=== PATIENT | female | born 1940 | race Two or more races ===

== ENCOUNTER 2016-06-14 15:36 | Inpatient (IN) | payer MEDICARE ==
[~2016-06-14] VITALS: Ht 175.3 cm; Wt 56.0 kg
[2016-06-14 19:47] LABS: Basophils # (auto) 0 uL; Basophils % (auto) 0.4 % (0.0-2.0); DEFINITIVE VIEW TRANSMISSION; Eosinophils # (auto) 0.1 uL; Eosinophils % (auto) 1.1 % (0.0-7.0); Hemoglobin 13.2 g/dL (12.2-16.2); Lymphocytes # (auto) 2.9 uL; Lymphocytes % (auto) 26.8 % (10.0-50.0); Mean Corpuscular Hemoglobin 26.5 pg (28.0-32.0); Mean Corpuscular Hgb Conc. 32.2 g/dL (32.0-36.0); Mean Corpuscular Volume 82.4 fL (80.0-100.0); Mean Platelet Volume 8.4 fL (7.4-10.4); Monocytes # (auto) 0.8 uL; Monocytes % (auto) 7.7 % (0.0-12.0); Platelet Count (auto) 397 10^3/uL (140-450); Red Cell Distribution Width 13.4 % (11.6-16.0); White Blood Cell 10.9 10^3/uL (4.4-10.8)
[2016-06-14 20:00] LABS: Albumin 3.5 g/dL (3.4-5.0); Calcium 9.1 mg/dL (8.5-10.1); Potassium 3.8 mmol/L (3.5-5.1)
[2016-06-14 20:02] LABS: Bilirubin, Total 0.4 mg/dL (0.2-1.0); Total Protein 7.9 g/dL (6.4-8.2)
[2016-06-14] MEDS ORDERED: cloNIDine HCL 0.1 MG TAB PO ONE (22:00)
[2016-06-14] MEDS: cefTRIAXone 1GM/50ML D5W 50 ML IV ONE ×2 (22:31→23:01)
[2016-06-14] MEDS ORDERED: SODIUM CHLORIDE 0.9% 1,000 ML IV SCH (23:23)
[2016-06-14] MEDS ORDERED: DEXTROSE (50%) 50ML SYRG IV PRN (23:30)
[2016-06-14] MEDS ORDERED: LACTULOSE 20Gm/30ML SOLN PO PRN (23:30)
[2016-06-14] MEDS ORDERED: VANCOMYCIN PER PHARMACY 0 MG IV SCH (23:30)
[2016-06-14] MEDS ORDERED: VANCOMYCIN 1GM/250ML D5W 250 ML IV ONE (23:30)
[2016-06-14] MEDS ORDERED: MORPHINE SULF INJ 2 MG/ML SYRINGE 1ML IV PRN (23:30)
[2016-06-14] MEDS ORDERED: NITROGLYCERIN 0.4 MG SL TAB SL PRN (23:30)
[2016-06-14] MEDS ORDERED: cloNIDine HCL 0.1 MG TAB PO PRN (23:30)
[2016-06-15] MEDS: PIPERACILLIN-TAZOB 3.375GM 100 ML IV SCH ×2 (00:39→05:46)
[2016-06-15] MEDS: ACCU-CHEK COMFORT CURVE STRIP VI SCH ×4 (00:40→17:21)
[2016-06-15] MEDS: InsuLIN REG 1unit/0.01ml Soln (100units/ml) SC SCH ×5 (00:42→17:57)
[2016-06-15 01:22] VITALS: BP 111/53
[2016-06-15] MEDS ORDERED: GLYB5TAB8 PO (01:41)
[2016-06-15] MEDS ORDERED: LISI10TA6 PO (01:41)
[2016-06-15] MEDS ORDERED: METO5TAB56 PO (01:41)
[2016-06-15] MEDS ORDERED: ASPI81TA27 PO (01:41)
[2016-06-15 05:23] VITALS: BP 93/54
[2016-06-15 05:54] LABS: Basophils # (auto) 0 uL; Basophils % (auto) 0.6 % (0.0-2.0); DEFINITIVE VIEW TRANSMISSION; Eosinophils # (auto) 0.1 uL; Eosinophils % (auto) 1.4 % (0.0-7.0); Hematocrit 34.6 % (36.0-46.0); Hemoglobin 11.5 g/dL (12.2-16.2); Lymphocytes # (auto) 2.1 uL; Lymphocytes % (auto) 28.7 % (10.0-50.0); Mean Corpuscular Hemoglobin 26.9 pg (28.0-32.0); Mean Corpuscular Hgb Conc. 33.1 g/dL (32.0-36.0); Mean Corpuscular Volume 81.1 fL (80.0-100.0); Mean Platelet Volume 8.4 fL (7.4-10.4); Monocytes # (auto) 0.7 uL; Neutrophils # (auto) 4.5 uL; Neutrophils % (auto) 60.3 % (37.0-80.0); Platelet Count (auto) 363 10^3/uL (140-450); Red Cell Distribution Width 13.1 % (11.6-16.0); White Blood Cell 7.4 10^3/uL (4.4-10.8)
[2016-06-15 06:13] LABS: Albumin 2.8 g/dL (3.4-5.0); BUN/Creatinine Ratio 14.1; Calcium 8.3 mg/dL (8.5-10.1); Potassium 3.9 mmol/L (3.5-5.1)
[2016-06-15 06:15] LABS: Bilirubin, Total 0.4 mg/dL (0.2-1.0); Total Protein 6.6 g/dL (6.4-8.2)
[2016-06-15 09:00] VITALS: BP 100/71
[2016-06-15] MEDS ORDERED: ENOXAPARIN SOD 40 MG/0.4 ML SYRINGE SC SCH (10:00)
[2016-06-15] MEDS ORDERED: LISINOPRIL 20 MG TAB PO SCH (10:00)
[2016-06-15] MEDS ORDERED: ENOXAPARIN SOD 30 MG/0.3 ML SYRINGE SC SCH (10:00)
[2016-06-15] MEDS ORDERED: PANTOPRAZOLE SODIUM 40 MG/10 ML VIAL IV SCH (10:00)
[2016-06-15] MEDS ORDERED: LORazepam 2MG/ML-1ML VIAL IV ONE (11:00)
[2016-06-15] MEDS ORDERED: cefTRIAXone 1GM/50ML D5W 50 ML IV ONE (11:00)
[2016-06-15] MEDS ORDERED: PIPERACILLIN-TAZOB 2.25GM 50 ML IV SCH (12:00)
[2016-06-15 13:00] VITALS: BP 150/61
[2016-06-15] MEDS: CLINDAMYCIN 300MG IV 50 ML IV SCH ×2 (15:08→22:05)
[2016-06-15] MEDS ORDERED: VANCOMYCIN 1GM/250ML D5W 250 ML IV ONE (16:00)
[2016-06-15 22:00] VITALS: BP 127/60
[2016-06-16] MEDS: ACCU-CHEK COMFORT CURVE STRIP VI SCH ×5 (00:07→23:19)
[2016-06-16] MEDS: InsuLIN REG 1unit/0.01ml Soln (100units/ml) SC SCH ×5 (00:07→23:21)
[2016-06-16 04:59] VITALS: BP 135/63
[2016-06-16] MEDS: CLINDAMYCIN 300MG IV 50 ML IV SCH ×3 (06:09→21:05)
[2016-06-16 07:32] LABS: INR 1.1 (0.9-1.15); Partial Thromboplastin Time 28.4 sec (22.64-33.71); Prothrombin Time 11.3 sec (9.37-12.3)
[2016-06-16 07:34] LABS: Albumin 2.9 g/dL (3.4-5.0); BUN/Creatinine Ratio 19.3; Calcium 8.6 mg/dL (8.5-10.1); Potassium 3.8 mmol/L (3.5-5.1)
[2016-06-16 08:15] LABS: Bilirubin, Total 0.3 mg/dL (0.2-1.0); Total Protein 6.8 g/dL (6.4-8.2)
[2016-06-16 09:00] VITALS: BP 155/68
[2016-06-16] MEDS: cefTRIAXone 1GM/50ML D5W 50 ML IV SCH (11:07)
[2016-06-16 13:00] VITALS: BP 140/89
[2016-06-16 13:25] LABS: Urine Bilirubin Negative (Negative); Urine Blood Negative /uL (Negative); Urine Color Yellow (Yellow); Urine Glucose TRACE mg/dL (Normal); Urine Ketone TRACE (Negative); Urine Mucus FEW (None Seen); Urine Nitrite Negative (Negative); Urine RBC 2 /hpf (0 - 4); Urine Squamous Epithelial Cell MOD /hpf (<5); Urine Urobilinogen Normal (Negative)
[2016-06-16 16:58] VITALS: BP 115/50
[2016-06-16 22:00] VITALS: BP 181/78
[2016-06-17] MEDS: CLINDAMYCIN 300MG IV 50 ML IV SCH ×3 (05:12→21:24)
[2016-06-17 05:25] VITALS: BP 152/78
[2016-06-17] MEDS: ACCU-CHEK COMFORT CURVE STRIP VI SCH ×4 (05:41→21:25)
[2016-06-17] MEDS: InsuLIN REG 1unit/0.01ml Soln (100units/ml) SC SCH ×4 (05:43→21:42)
[2016-06-17] MEDS: cefTRIAXone 1GM/50ML D5W 50 ML IV SCH (08:39)
[2016-06-17 09:00] VITALS: BP 148/77
[2016-06-17 13:00] VITALS: BP 146/58
[2016-06-17 17:00] VITALS: BP 149/79
[2016-06-17 21:32] VITALS: BP 162/75
[2016-06-18 04:30] VITALS: BP 196/92
[2016-06-18 05:22] VITALS: BP 132/65
[2016-06-18 05:32] LABS: Basophils # (auto) 0.1 uL; Basophils % (auto) 0.6 % (0.0-2.0); DEFINITIVE VIEW TRANSMISSION; Eosinophils # (auto) 0.2 uL; Eosinophils % (auto) 1.7 % (0.0-7.0); Hematocrit 42.1 % (36.0-46.0); Hemoglobin 13.6 g/dL (12.2-16.2); Lymphocytes # (auto) 3.1 uL; Lymphocytes % (auto) 31.3 % (10.0-50.0); Mean Corpuscular Hemoglobin 26.3 pg (28.0-32.0); Mean Corpuscular Hgb Conc. 32.2 g/dL (32.0-36.0); Mean Corpuscular Volume 81.7 fL (80.0-100.0); Mean Platelet Volume 8.5 fL (7.4-10.4); Monocytes # (auto) 1.1 uL; Monocytes % (auto) 10.7 % (0.0-12.0); Neutrophils # (auto) 5.5 uL; Neutrophils % (auto) 55.7 % (37.0-80.0); Platelet Count (auto) 372 10^3/uL (140-450); Red Cell Distribution Width 13.1 % (11.6-16.0); White Blood Cell 9.9 10^3/uL (4.4-10.8)
[2016-06-18] MEDS: ACCU-CHEK COMFORT CURVE STRIP VI SCH ×3 (05:49→18:00)
[2016-06-18] MEDS: InsuLIN REG 1unit/0.01ml Soln (100units/ml) SC SCH ×3 (05:51→18:30)
[2016-06-18 05:52] LABS: Potassium 3.9 mmol/L (3.5-5.1)
[2016-06-18 05:56] LABS: BUN/Creatinine Ratio 17.4; Calcium 9.3 mg/dL (8.5-10.1)
[2016-06-18] MEDS: cefTRIAXone 1GM/50ML D5W 50 ML IV SCH (09:00)
[2016-06-18 10:00] VITALS: BP 144/100
[2016-06-18] MEDS: ASPirin 81 mg TAB PO SCH (10:00)
[2016-06-18] MEDS ORDERED: IODIXANOL 320MG/ML 100ML BTL IV ONE (10:22)
[2016-06-18] MEDS ORDERED: LIDOCAINE 2%HCL (LOCAL ANESTH.) INJ 20ML MDV ONE (10:22)
[2016-06-18] MEDS ORDERED: MIDAZOLAM HCL 1MG/1ML-2 ML VIAL ONE (10:32)
[2016-06-18] MEDS ORDERED: ANGIOMAX 250 MG VIAL IV ONE (10:33)
[2016-06-18] MEDS ORDERED: fentaNYL CITRATE 100 MCG/2 ML VL ONE (10:33)
[2016-06-18] MEDS ORDERED: SODIUM CHL 0.9% 50 ML ONE (10:33)
[2016-06-18] MEDS ORDERED: hydrALAZINE HCL 20 MG/ML VL ONE (11:15)
[2016-06-18] MEDS ORDERED: LABETALOL HCL 5 MG/ML 4ML SYRINGE IV ONE (11:21)
[2016-06-18] MEDS ORDERED: EPTIFIBATIDE INJ (2MG/ML) 10ML VIAL IV ONE (11:34)
[2016-06-18] MEDS ORDERED: VERAPAMIL 2.5MG/ML INJ 2ML VIAL IV ONE (11:34)
[2016-06-18] MEDS ORDERED: NITROGLYCERIN 5MG/ML 10ML VIAL IV ONE (11:34)
[2016-06-18] MEDS ORDERED: cloNIDine HCL 0.1 MG TAB ONE (11:41)
[2016-06-18] MEDS ORDERED: cloNIDine HCL 0.1 MG TAB PO ONE (12:00)
[2016-06-18] MEDS ORDERED: ONDANSETRON HCL 4 MG/2 ML VIAL ONE (12:29)
[2016-06-18] MEDS ORDERED: ONDANSETRON HCL 4 MG/2 ML VIAL IV ONE (13:00)
[2016-06-18] MEDS ORDERED: SODIUM CHL 0.9% 500 ML IV ONE (13:30)
[2016-06-18] MEDS ORDERED: LISINOPRIL 10 MG TAB PO ONE (15:15)
[2016-06-18 16:49] VITALS: BP 113/51
[2016-06-18 17:00] VITALS: BP 137/64
[2016-06-18 22:00] VITALS: BP 110/50
[2016-06-19] MEDS: ACCU-CHEK COMFORT CURVE STRIP VI SCH ×4 (00:25→18:02)
[2016-06-19] MEDS: InsuLIN REG 1unit/0.01ml Soln (100units/ml) SC SCH ×4 (01:28→18:00)
[2016-06-19] MEDS: HYDROcodone-ACET 5/325MG TAB PO PRN ×2 (04:09→20:10)
[2016-06-19 05:09] VITALS: BP 103/51
[2016-06-19] MEDS: CLINDAMYCIN 300MG IV 50 ML IV SCH ×3 (05:37→21:47)
[2016-06-19 06:29] LABS: BUN/Creatinine Ratio 18.4; Calcium 8.2 mg/dL (8.5-10.1); Potassium 3.7 mmol/L (3.5-5.1)
[2016-06-19 08:30] VITALS: BP 91/41
[2016-06-19] MEDS: LISINOPRIL 10 MG TAB PO SCH ×3 (10:00→21:47)
[2016-06-19] MEDS: cefTRIAXone 1GM/50ML D5W 50 ML IV SCH (11:23)
[2016-06-19] MEDS: ASPirin 81 mg TAB PO SCH (11:23)
[2016-06-19 12:00] VITALS: BP 175/73
[2016-06-19 17:00] VITALS: BP 195/82
[2016-06-19] MEDS ORDERED: cloNIDine HCL 0.1 MG TAB PO PRN (17:15)
[2016-06-19 22:00] VITALS: BP 179/76
[2016-06-20] MEDS: ACCU-CHEK COMFORT CURVE STRIP VI SCH ×4 (00:15→17:36)
[2016-06-20] MEDS: InsuLIN REG 1unit/0.01ml Soln (100units/ml) SC SCH ×4 (00:17→17:36)
[2016-06-20 05:30] VITALS: BP 94/69
[2016-06-20] MEDS: CLINDAMYCIN 300MG IV 50 ML IV SCH (05:36)
[2016-06-20] MEDS ORDERED: ceFAZolin 1GM/50ML D5W 50 ML IV ONE (08:53)
[2016-06-20 09:02] VITALS: BP 177/73
[2016-06-20] MEDS ORDERED: ONDANSETRON HCL 4 MG/2 ML VIAL ONE (09:15)
[2016-06-20] MEDS ORDERED: fentaNYL CITRATE 100 MCG/2 ML VL ONE (09:15)
[2016-06-20] MEDS ORDERED: MIDAZOLAM HCL 1MG/1ML-2 ML VIAL ONE (09:15)
[2016-06-20] MEDS ORDERED: SODIUM CHLORIDE LOCK 20 ML ONE (09:15)
[2016-06-20] MEDS ORDERED: PROPOFOL 10 MG/ML 20 ML IV ONE (09:15)
[2016-06-20] MEDS ORDERED: BUPIVACAINE 0.75% INJ 10ML MPV SDV IJ ONE (10:25)
[2016-06-20] MEDS ORDERED: BUPIVACAINE 0.75% INJ 30ML MPF VIAL IJ ONE (10:30)
[2016-06-20] MEDS ORDERED: SILVER SULFADIAZINE 1 % TOPICAL CREAM 50GM TOP ONE ×2 (10:33→10:44)
[2016-06-20] MEDS ORDERED: HYDROmorphone HCL 2 MG/ML VL IV PRN (11:00)
[2016-06-20] MEDS ORDERED: PROMETHAZINE HCL 25 MG/ML 1ML IM ONE (11:00)
[2016-06-20] MEDS ORDERED: ACCU-CHEK COMFORT CURVE STRIP VI ONE (11:00)
[2016-06-20] MEDS: ASPirin 81 mg TAB PO SCH (12:30)
[2016-06-20] MEDS: LISINOPRIL 10 MG TAB PO SCH ×2 (12:31→22:06)
[2016-06-20] MEDS: cefTRIAXone 1GM/50ML D5W 50 ML IV SCH (12:31)
[2016-06-20 12:41] VITALS: BP 159/86
[2016-06-20] MEDS ORDERED: LEVOFLOXACIN 500 MG TAB PO ONE (14:00)
[2016-06-20] MEDS: CLINDAMYCIN HCL 150 MG CAP PO SCH ×2 (14:14→22:05)
[2016-06-20 16:44] VITALS: BP 150/91
[2016-06-20 22:21] VITALS: BP 203/104
[2016-06-21] MEDS: ACCU-CHEK COMFORT CURVE STRIP VI SCH ×3 (00:21→12:00)
[2016-06-21 05:13] VITALS: BP 135/65
[2016-06-21] MEDS: CLINDAMYCIN HCL 150 MG CAP PO SCH (06:09)
[2016-06-21] MEDS: InsuLIN REG 1unit/0.01ml Soln (100units/ml) SC SCH ×3 (06:22→12:00)
[2016-06-21 06:24] LABS: Basophils # (auto) 0 uL; Basophils % (auto) 0.7 % (0.0-2.0); Eosinophils # (auto) 0.1 uL; Eosinophils % (auto) 1.8 % (0.0-7.0); Hemoglobin 10.7 g/dL (12.2-16.2); Lymphocytes # (auto) 1.2 uL; Mean Corpuscular Hemoglobin 27.6 pg (28.0-32.0); Mean Corpuscular Hgb Conc. 33.4 g/dL (32.0-36.0); Mean Corpuscular Volume 82.6 fL (80.0-100.0); Mean Platelet Volume 8.6 fL (7.4-10.4); Monocytes # (auto) 0.8 uL; Monocytes % (auto) 11.1 % (0.0-12.0); Neutrophils # (auto) 4.8 uL; Neutrophils % (auto) 69.4 % (37.0-80.0); Platelet Count (auto) 253 10^3/uL (140-450); Red Cell Distribution Width 12.5 % (11.6-16.0); White Blood Cell 6.9 10^3/uL (4.4-10.8)
[2016-06-21 06:40] LABS: BUN/Creatinine Ratio 10.8; Calcium 8.4 mg/dL (8.5-10.1); Potassium 4.3 mmol/L (3.5-5.1)
[2016-06-21 09:00] VITALS: BP 129/54
[2016-06-21] MEDS ORDERED: LEVOFLOXACIN 500 MG TAB PO SCH (10:00)
[2016-06-21] MEDS ORDERED: LEVOFLOXACIN 250 MG TAB PO SCH (10:00)
[2016-06-21] MEDS: LISINOPRIL 10 MG TAB PO SCH (10:09)
[2016-06-21] MEDS: ASPirin 81 mg TAB PO SCH (10:09)
[2016-06-21 11:44] VITALS: BP 129/54
== END 2016-06-21 13:46 | disposition home or self-care (01) | DRG 264 ==
LOC: ER 15:40 → TELE-EAST 15:41 → EAST 06-15 14:34
PROVIDERS: ADMIT Family Medicine; ATTEND Internal Medicine
PROC: B41G1ZZ Fluoroscopy of Left Lower Extremity Arteries using Low Osmolar Contrast (ICD-10-PCS; principal; 2016-06-18)
PROC: B41F1ZZ Fluoroscopy of Right Lower Extremity Arteries using Low Osmolar Contrast (ICD-10-PCS; 2016-06-18)
PROC: 0HDRXZZ Extraction of Toe Nail, External Approach (ICD-10-PCS; 2016-06-18)
PROC: 0JBR0ZZ Excision of Left Foot Subcutaneous Tissue and Fascia, Open Approach (ICD-10-PCS; 2016-06-20)
PROC: 0HRNXK3 Replacement of Left Foot Skin with Nonautologous Tissue Substitute, Full Thickness, External Approach (ICD-10-PCS; 2016-06-20)
DX: E10.51 Type 1 diabetes mellitus with diabetic peripheral angiopathy without gangrene (principal); N17.0 Acute kidney failure with tubular necrosis; L03.116 Cellulitis of left lower limb; E44.0 Moderate protein-calorie malnutrition; Z68.1 Body mass index [BMI] 19.9 or less, adult; E10.621 Type 1 diabetes mellitus with foot ulcer; L03.032 Cellulitis of left toe; E10.65 Type 1 diabetes mellitus with hyperglycemia; L97.521 Non-pressure chronic ulcer of other part of left foot limited to breakdown of skin; I25.10 Atherosclerotic heart disease of native coronary artery without angina pectoris; I10 Essential (primary) hypertension; L97.529 Non-pressure chronic ulcer of other part of left foot with unspecified severity; Z82.3 Family history of stroke; Z82.49 Family history of ischemic heart disease and other diseases of the circulatory system; Z95.1 Presence of aortocoronary bypass graft; Z83.3 Family history of diabetes mellitus; Z79.4 Long term (current) use of insulin; Z79.82 Long term (current) use of aspirin; Z98.890 Other specified postprocedural states; Z79.899 Other long term (current) drug therapy
CPT/HCPCS: 36415; 71020; 73620; 78315; 80048; 80053; 80202; 81001; 82962; 83036; 85025; 85049; 85610; 85730; 87040; 87070; 87075; 87077; 87081; 87186; 93923; 96365; 96375; 99152; J0690; J0696; J1815; J2250; J2405; J2543; J2704; J3490; Q9967

== ENCOUNTER 2017-01-13 14:09 | Inpatient (IN) | payer MEDICARE ==
[~2017-01-13] VITALS: Ht 162.6 cm; Wt 44.9 kg
[~2017-01-13 14:09] MED LIST: ACET-1158 PO; ASPI81TA27 PO; ATOR20TA50 PO; BIS10RS PR; CLON0.2T PO; CLOP75TA28 PO; FLUC100T PO; FLUC100T34 PO; GLYB5TAB8 PO; INSUINJ IJ; LISI10TA6 PO; MAGN400S25 PO; MULT1TAB61 PO; ONDA4TAB5 PO; POTA10TA51 PO; SIMV10TA84 PO; SOTA80TA PO; TRAM50TA2 PO; VAN1PBAE IV; [UNRECOGNIZED DRUG - CODE] IV
[2017-01-13] MEDS ORDERED: SODIUM CHLORIDE 0.9% 1,000 ML IVB ONE (14:33)
[2017-01-13 15:11] LABS: Albumin 3.7 g/dL (3.4-5.0); Calcium 9.4 mg/dL (8.5-10.1); Magnesium 2.1 mg/dL (1.6-2.6); Potassium 4.7 mmol/L (3.5-5.1)
[2017-01-13 15:17] LABS: CONDITION Y; Hematocrit 40.8 % (36.0-46.0); Hemoglobin 13.6 g/dL (12.2-16.2); Mean Corpuscular Hemoglobin 27.2 pg (28.0-32.0); Mean Corpuscular Hgb Conc. 33.4 g/dL (32.0-36.0); Mean Corpuscular Volume 81.2 fL (80.0-100.0); Mean Platelet Volume 9.4 fL (7.4-10.4); Platelet Count (auto) 460 10^3/uL (140-450); Red Cell Distribution Width 17.5 % (11.6-16.0); SUSPECT SEE PRINTOUT; White Blood Cell 26.6 10^3/uL (4.4-10.8)
[2017-01-13 15:20] LABS: Bilirubin, Total 0.5 mg/dL (0.2-1.0); Total Protein 8.6 g/dL (6.4-8.2)
[2017-01-13 15:22] LABS: Metamyelocytes % 0; Myelocytes % 0; Promyelocytes % 0; Reactive Lymphocytes 0
[2017-01-13 15:53] LABS: Platelet Estimate Increased
[2017-01-13 15:54] LABS: Hypersegmented Neutrophils Present; INR 1.03 (0.9-1.15); Partial Thromboplastin Time 30.1 sec (22.64-33.71); Prothrombin Time 11.2 sec (9.37-12.3)
[2017-01-13 15:55] LABS: Toxic Granulation Slight
[2017-01-13 15:59] LABS: Lactic Acid w/Reflex 2.1 mmol/L (0.4-2.0)
[2017-01-13] MEDS ORDERED: LABETALOL HCL 5 MG/ML ML 20ML VIAL IV ONE (16:00)
[2017-01-13 16:18] LABS: REFLEX LACTIC ACID YES OR NO YES
[2017-01-13] MEDS ORDERED: VANCOMYCIN PER PHARMACY 0 MG IV SCH ×2 (18:00)
[2017-01-13] MEDS ORDERED: MORPHINE SULF INJ 2 MG/ML SYRINGE 1ML IV ONE (18:00)
[2017-01-13] MEDS ORDERED: ONDANSETRON HCL 4 MG/2 ML VIAL IV ONE (18:00)
[2017-01-13] MEDS ORDERED: hydrALAZINE HCL 20 MG/ML VL IV ONE (18:00)
[2017-01-13] MEDS ORDERED: cefTRIAXone 1GM/50ML D5W 50 ML IV ONE ×2 (18:00)
[2017-01-13] MEDS ORDERED: VANCOMYCIN 1GM/250ML D5W 250 ML IV ONE (19:00)
[2017-01-13 19:24] LABS: Urine Bilirubin Negative (Negative); Urine Blood Negative /uL (Negative); Urine Color Yellow (Yellow); Urine Glucose 4+ mg/dL (Normal); Urine Hyaline Cast FEW /lpf (0 - 2); Urine Ketone 1+ (Negative); Urine Nitrite Negative (Negative); Urine RBC 2 /hpf (0 - 4); Urine Urobilinogen Normal (Negative); Urine WBC Clumps PRESENT /hpf (None Seen)
[2017-01-13] MEDS ORDERED: LORazepam 2MG/ML-1ML VIAL IV ONE (20:00)
[2017-01-13] MEDS ORDERED: diphenhdrAMINE HCL 50 MG/1 ML VL IV ONE (20:00)
[2017-01-14] VITALS (7 sets, daily range): BP systolic 116–205; BP diastolic 54–99
[2017-01-14] MEDS ORDERED: LACTULOSE 20Gm/30ML SOLN PO PRN (00:45)
[2017-01-14] MEDS ORDERED: LORazepam 2MG/ML-1ML VIAL IV PRN (00:45)
[2017-01-14] MEDS ORDERED: ACETAMINOPHEN 500 MG TAB PO PRN (00:45)
[2017-01-14] MEDS ORDERED: ONDANSETRON HCL 4 MG/2 ML VIAL IV PRN (00:45)
[2017-01-14] MEDS ORDERED: NITROGLYCERIN 0.4 MG SL TAB SL PRN (00:45)
[2017-01-14] MEDS ORDERED: cefTRIAXone 1GM/50ML D5W 50 ML IV ONE (00:45)
[2017-01-14] MEDS ORDERED: DEXTROSE (50%) 50ML SYRG IV PRN (00:45)
[2017-01-14] MEDS ORDERED: MORPHINE SULF INJ 2 MG/ML SYRINGE 1ML IV PRN ×2 (00:45)
[2017-01-14] MEDS ORDERED: TEMAZEPAM 15 MG CAP PO PRN (00:45)
[2017-01-14] MEDS ORDERED: cloNIDine HCL 0.1 MG TAB PO PRN (03:45)
[2017-01-14] MEDS ORDERED: LABETALOL HCL 5 MG/ML ML 20ML VIAL IV ONE (03:45)
[2017-01-14] MEDS: PIPERACILLIN-TAZOB 3.375GM 100 ML IV SCH ×3 (05:56→17:52)
[2017-01-14] MEDS: ACCU-CHEK COMFORT CURVE STRIP VI SCH ×4 (06:31→21:58)
[2017-01-14] MEDS: InsuLIN REG 1unit/0.01ml Soln (100units/ml) SC SCH ×4 (06:32→21:58)
[2017-01-14 06:46] LABS: Basophils # (auto) 0 uL; Basophils % (auto) 0.3 % (0.0-2.0); CONDITION Y; DEFINITIVE SEE PRINTOUT; Eosinophils # (auto) 0.1 uL; Eosinophils % (auto) 0.5 % (0.0-7.0); Hematocrit 35.1 % (36.0-46.0); Hemoglobin 11.5 g/dL (12.2-16.2); Lymphocytes # (auto) 1.6 uL; Lymphocytes % (auto) 9.1 % (10.0-50.0); Mean Corpuscular Hemoglobin 26.8 pg (28.0-32.0); Mean Corpuscular Hgb Conc. 32.8 g/dL (32.0-36.0); Mean Corpuscular Volume 81.5 fL (80.0-100.0); Monocytes # (auto) 1.4 uL; Monocytes % (auto) 7.8 % (0.0-12.0); Neutrophils # (auto) 14.5 uL; Neutrophils % (auto) 82.3 % (37.0-80.0); Platelet Count (auto) 381 10^3/uL (140-450); Potassium 4.1 mmol/L (3.5-5.1); Red Cell Distribution Width 17.3 % (11.6-16.0); White Blood Cell 17.6 10^3/uL (4.4-10.8)
[2017-01-14 06:56] LABS: Albumin 2.8 g/dL (3.4-5.0); BUN/Creatinine Ratio 27.1; Calcium 9.1 mg/dL (8.5-10.1)
[2017-01-14 06:58] LABS: Bilirubin, Total 0.2 mg/dL (0.2-1.0)
[2017-01-14] MEDS: CLOPIDOGREL BISULFATE 75 MG TAB PO SCH (11:22)
[2017-01-14] MEDS: LISINOPRIL 10 MG TAB PO SCH (11:23)
[2017-01-14] MEDS: LINEZOLID 600MG/300ML 300 ML IV SCH ×2 (11:29→22:28)
[2017-01-14] MEDS ORDERED: InsuLIN REG 1unit/0.01ml Soln (100units/ml) ONE ×2 (11:47→11:57)
[2017-01-14] MEDS ORDERED: IBUP600T27 PO (15:06)
[2017-01-14] MEDS ORDERED: TEMA15CA91 PO (15:06)
[2017-01-14] MEDS ORDERED: ALPR0.254 PO (15:06)
[2017-01-14] MEDS ORDERED: LISI-646 PO (15:06)
[2017-01-14] MEDS ORDERED: PERCOT PO (15:06)
[2017-01-14] MEDS ORDERED: FAMO-12 PO (15:06)
[2017-01-14] MEDS ORDERED: CITA-77 PO (15:06)
[2017-01-14] MEDS ORDERED: POM (15:14)
[2017-01-14] MEDS: ATORVASTATIN 20 MG TAB PO SCH (21:52)
[2017-01-14] MEDS ORDERED: cefTRIAXone 1GM/50ML D5W 50 ML IV SCH (22:00)
[2017-01-15] MEDS: PIPERACILLIN-TAZOB 3.375GM 100 ML IV SCH ×4 (00:32→18:22)
[2017-01-15 05:26] VITALS: BP 127/62
[2017-01-15] MEDS: ACCU-CHEK COMFORT CURVE STRIP VI SCH ×4 (05:54→22:25)
[2017-01-15] MEDS: InsuLIN REG 1unit/0.01ml Soln (100units/ml) SC SCH ×4 (05:55→22:26)
[2017-01-15 06:49] LABS: Basophils # (auto) 0 uL; Basophils % (auto) 0.5 % (0.0-2.0); CONDITION Y; Eosinophils # (auto) 0.4 uL; Eosinophils % (auto) 3.8 % (0.0-7.0); Hematocrit 32.9 % (36.0-46.0); Hemoglobin 10.9 g/dL (12.2-16.2); Lymphocytes # (auto) 1.6 uL; Lymphocytes % (auto) 16.6 % (10.0-50.0); Mean Corpuscular Hemoglobin 27.1 pg (28.0-32.0); Mean Corpuscular Hgb Conc. 33.2 g/dL (32.0-36.0); Mean Corpuscular Volume 81.4 fL (80.0-100.0); Mean Platelet Volume 8.8 fL (7.4-10.4); Monocytes # (auto) 0.8 uL; Monocytes % (auto) 8.6 % (0.0-12.0); Neutrophils # (auto) 6.8 uL; Neutrophils % (auto) 70.5 % (37.0-80.0); Platelet Count (auto) 343 10^3/uL (140-450); Red Cell Distribution Width 17.5 % (11.6-16.0); White Blood Cell 9.7 10^3/uL (4.4-10.8)
[2017-01-15 07:04] LABS: BUN/Creatinine Ratio 18.8; Calcium 8.7 mg/dL (8.5-10.1); Potassium 3.5 mmol/L (3.5-5.1)
[2017-01-15 07:50] VITALS: BP 122/63
[2017-01-15 08:17] VITALS: BP 122/63
[2017-01-15] MEDS: CLOPIDOGREL BISULFATE 75 MG TAB PO SCH (10:07)
[2017-01-15] MEDS: LISINOPRIL 10 MG TAB PO SCH (10:08)
[2017-01-15] MEDS ORDERED: CITALOPRAM HYDROBR 20 MG TAB PO ONE (10:30)
[2017-01-15] MEDS ORDERED: ASPirin 81 mg TAB PO ONE (10:30)
[2017-01-15] MEDS: LINEZOLID 600MG/300ML 300 ML IV SCH ×2 (11:10→22:26)
[2017-01-15 11:38] VITALS: BP 156/71
[2017-01-15 16:59] VITALS: BP 142/77
[2017-01-15 21:30] VITALS: BP 146/77
[2017-01-15] MEDS: ATORVASTATIN 20 MG TAB PO SCH (22:26)
[2017-01-16] MEDS: PIPERACILLIN-TAZOB 3.375GM 100 ML IV SCH ×4 (01:02→18:26)
[2017-01-16 04:45] VITALS: BP 215/89
[2017-01-16] MEDS: ACCU-CHEK COMFORT CURVE STRIP VI SCH ×4 (05:38→21:24)
[2017-01-16] MEDS: InsuLIN REG 1unit/0.01ml Soln (100units/ml) SC SCH ×4 (05:44→22:14)
[2017-01-16 05:45] VITALS: BP 204/89
[2017-01-16] MEDS ORDERED: METOPROLOL TARTRATE 1MG/1ML-5ML VIAL IV ONE (06:30)
[2017-01-16 08:00] VITALS: BP 110/52
[2017-01-16] MEDS: ASPirin 81 mg TAB PO SCH (09:13)
[2017-01-16] MEDS: LISINOPRIL 10 MG TAB PO SCH (09:13)
[2017-01-16] MEDS: CITALOPRAM HYDROBR 20 MG TAB PO SCH (09:13)
[2017-01-16] MEDS ORDERED: BOOST PLUS 8 ounce PO SCH (10:00)
[2017-01-16] MEDS: Boost Glucose Control 8 Ounces PO SCH ×2 (10:00→21:24)
[2017-01-16] MEDS: LINEZOLID 600MG/300ML 300 ML IV SCH ×2 (10:57→22:59)
[2017-01-16] MEDS: MULTIPLE VITAMINS W/ MINERALS TAB PO SCH ×2 (12:03→21:24)
[2017-01-16] MEDS: ASCORBIC ACID 500 MG TAB PO SCH ×2 (12:03→21:24)
[2017-01-16 12:34] VITALS: BP 119/58
[2017-01-16 16:51] VITALS: BP 132/81
[2017-01-16] MEDS: ATORVASTATIN 20 MG TAB PO SCH (21:24)
[2017-01-16 21:32] VITALS: BP 125/61
[2017-01-17] MEDS: PIPERACILLIN-TAZOB 3.375GM 100 ML IV SCH ×3 (00:17→11:48)
[2017-01-17 04:56] VITALS: BP 155/79
[2017-01-17 06:01] LABS: Basophils # (auto) 0 uL; Basophils % (auto) 0.6 % (0.0-2.0); CONDITION Y; DEFINITIVE SEE PRINTOUT; Eosinophils # (auto) 0.4 uL; Eosinophils % (auto) 5.7 % (0.0-7.0); Hematocrit 33.7 % (36.0-46.0); Lymphocytes # (auto) 2.1 uL; Lymphocytes % (auto) 28.1 % (10.0-50.0); Mean Corpuscular Hemoglobin 26.6 pg (28.0-32.0); Mean Corpuscular Hgb Conc. 32.6 g/dL (32.0-36.0); Mean Corpuscular Volume 81.7 fL (80.0-100.0); Mean Platelet Volume 8.9 fL (7.4-10.4); Monocytes # (auto) 0.7 uL; Monocytes % (auto) 9.2 % (0.0-12.0); Neutrophils # (auto) 4.1 uL; Neutrophils % (auto) 56.4 % (37.0-80.0); Platelet Count (auto) 348 10^3/uL (140-450); Red Cell Distribution Width 17.2 % (11.6-16.0); White Blood Cell 7.3 10^3/uL (4.4-10.8)
[2017-01-17] MEDS: ACCU-CHEK COMFORT CURVE STRIP VI SCH ×2 (06:14→11:48)
[2017-01-17] MEDS: InsuLIN REG 1unit/0.01ml Soln (100units/ml) SC SCH ×2 (06:15→12:48)
[2017-01-17 06:37] LABS: Potassium 3.6 mmol/L (3.5-5.1)
[2017-01-17 06:44] LABS: BUN/Creatinine Ratio 14.3; Calcium 8.8 mg/dL (8.5-10.1)
[2017-01-17] MEDS ORDERED: DOCUSATE SOD 100 MG CAP PO ONE (08:30)
[2017-01-17 09:00] VITALS: BP 169/78
[2017-01-17] MEDS: MULTIPLE VITAMINS W/ MINERALS TAB PO SCH (09:39)
[2017-01-17] MEDS: CITALOPRAM HYDROBR 20 MG TAB PO SCH (09:39)
[2017-01-17] MEDS: ASPirin 81 mg TAB PO SCH (09:39)
[2017-01-17] MEDS: ASCORBIC ACID 500 MG TAB PO SCH (09:39)
[2017-01-17] MEDS: LISINOPRIL 10 MG TAB PO SCH (09:50)
[2017-01-17] MEDS: Boost Glucose Control 8 Ounces PO SCH (10:00)
[2017-01-17] MEDS ORDERED: DOCUSATE SOD 100 MG CAP PO SCH (10:00)
[2017-01-17] MEDS: LINEZOLID 600MG/300ML 300 ML IV SCH (10:45)
[2017-01-17 12:06] VITALS: BP 169/78
[2017-01-17 12:25] VITALS: BP 160/90
== END 2017-01-17 16:01 | disposition hospice, home (50) | DRG 871 ==
LOC: EDBD 14:09 → ER 14:11 → TELE 14:12 → TELE-CENTR 01-14 03:09
PROVIDERS: ADMIT Nurse Practitioner Family; ATTEND Internal Medicine
DX: A41.9 Sepsis, unspecified organism (principal); G92 Toxic encephalopathy; E44.0 Moderate protein-calorie malnutrition; E11.52 Type 2 diabetes mellitus with diabetic peripheral angiopathy with gangrene; N39.0 Urinary tract infection, site not specified; M86.8X7 Other osteomyelitis, ankle and foot; Z68.1 Body mass index [BMI] 19.9 or less, adult; Z66 Do not resuscitate; F03.90 Unspecified dementia, unspecified severity, without behavioral disturbance, psychotic disturbance, mood disturbance, and anxiety; E11.65 Type 2 diabetes mellitus with hyperglycemia; E11.69 Type 2 diabetes mellitus with other specified complication; I10 Essential (primary) hypertension; E78.5 Hyperlipidemia, unspecified; I25.10 Atherosclerotic heart disease of native coronary artery without angina pectoris; I45.10 Unspecified right bundle-branch block; K21.9 Gastro-esophageal reflux disease without esophagitis; S91.301A Unspecified open wound, right foot, initial encounter; Z79.4 Long term (current) use of insulin; Z79.82 Long term (current) use of aspirin; Z79.899 Other long term (current) drug therapy; Z89.512 Acquired absence of left leg below knee; Z95.1 Presence of aortocoronary bypass graft; Z82.3 Family history of stroke; Z82.49 Family history of ischemic heart disease and other diseases of the circulatory system; Z83.3 Family history of diabetes mellitus; Z89.511 Acquired absence of right leg below knee
CPT/HCPCS: 36415; 51702; 70450; 71010; 78315; 80048; 80053; 80202; 80307; 81001; 82962; 83036; 83605; 83735; 84484; 85007; 85025; 85027; 85610; 85652; 85730; 87040; 87081; 87086; 93005; 94761; 96365; 96366; 96367; 96375; J0696; J1815; J2405; J2543

== ENCOUNTER 2017-11-03 15:49 | Emergency (ER) | payer MEDICARE ==
[~2017-11-03] VITALS: Ht 149.9 cm; Wt 49.9 kg
[~2017-11-03 15:49] MED LIST changes: -ACET-1158 PO; -ATOR20TA50 PO; -BIS10RS PR; -CLON0.2T PO; -CLOP75TA28 PO; -FLUC100T PO; -FLUC100T34 PO; -GLYB5TAB8 PO; -INSUINJ IJ; -MAGN400S25 PO; -ONDA4TAB5 PO; -POTA10TA51 PO; -SIMV10TA84 PO; -SOTA80TA PO; -TRAM50TA2 PO; -VAN1PBAE IV; -[UNRECOGNIZED DRUG - CODE] IV
[2017-11-03] MEDS ORDERED: SODIUM CHLORIDE 0.9% 1,000 ML IV ONE (18:10)
[2017-11-03] MEDS ORDERED: CLINDAMYCIN 600MG IV 50 ML IV ONE (18:15)
[2017-11-03 18:32] LABS: Basophils # (auto) 0.1 uL; Basophils % (auto) 0.8 % (0.0-2.0); Eosinophils # (auto) 0.3 uL; Eosinophils % (auto) 2.9 % (0.0-7.0); Hematocrit 39.3 % (36.0-46.0); Hemoglobin 13.2 g/dL (12.2-16.2); Lymphocytes # (auto) 2.6 uL; Lymphocytes % (auto) 28.2 % (10.0-50.0); Mean Corpuscular Hemoglobin 27.7 pg (28.0-32.0); Mean Corpuscular Hgb Conc. 33.6 g/dL (32.0-36.0); Mean Corpuscular Volume 82.3 fL (80.0-100.0); Monocytes # (auto) 0.7 uL; Monocytes % (auto) 7.8 % (0.0-12.0); Neutrophils # (auto) 5.6 uL; Neutrophils % (auto) 60.3 % (37.0-80.0); Nucleated Red Blood Cells % 0.1 %; Platelet Count (auto) 314 10^3/uL (140-450); Red Blood Cells 4.77 10^6/uL (4.0-5.20); Red Cell Distribution Width 13.9 % (11.8-14.3); White Blood Cell 9.3 10^3/uL (4.4-10.8)
[2017-11-03 18:44] LABS: Albumin 3.7 g/dL (3.4-5.0); Calcium 9.1 mg/dL (8.5-10.1); Potassium 4.7 mmol/L (3.5-5.1)
[2017-11-03 18:46] LABS: BUN/Creatinine Ratio 36.6; INR 0.92 (0.9-1.15); Prothrombin Time 9.9 sec (9.27-12.13)
[2017-11-03 19:08] LABS: Bilirubin, Total 0.2 mg/dL (0.2-1.0); Total Protein 8.1 g/dL (6.4-8.2)
[2017-11-03 20:34] VITALS: BP 178/89
== END 2017-11-03 21:22 | disposition home or self-care (01) ==
LOC: ER 15:49
DX: L03.115 Cellulitis of right lower limb (principal); E11.9 Type 2 diabetes mellitus without complications; E78.5 Hyperlipidemia, unspecified; I10 Essential (primary) hypertension; I25.2 Old myocardial infarction; Z88.6 Allergy status to analgesic agent; Z88.1 Allergy status to other antibiotic agents
CPT/HCPCS: 36415; 71045; 73620; 80053; 85025; 85610; 85730; 94761; 96365; 96366; J3490

== ENCOUNTER 2017-11-05 10:59 | Inpatient (IN) | payer MEDICARE ==
[~2017-11-05] VITALS: Ht 165.1 cm; Wt 51.3 kg
[2017-11-05 11:52] VITALS: BP 163/88
[2017-11-05] MEDS ORDERED: LISINOPRIL 10 MG TAB PO ONE (12:45)
[2017-11-05] MEDS ORDERED: ONDANSETRON HCL 4 MG/2 ML VIAL IV PRN (12:45)
[2017-11-05] MEDS ORDERED: HYDROmorphone HCL 2 MG/ML VL IV PRN (12:45)
[2017-11-05] MEDS ORDERED: DEXTROSE (50%) 50ML SYRG IV PRN (12:45)
[2017-11-05] MEDS ORDERED: LORazepam 2MG/ML-1ML VIAL IV PRN (12:45)
[2017-11-05 13:00] VITALS: BP 163/88
[2017-11-05 13:23] LABS: Basophils # (auto) 0.1 uL; Basophils % (auto) 0.6 % (0.0-2.0); Eosinophils # (auto) 0.3 uL; Eosinophils % (auto) 3.2 % (0.0-7.0); Hematocrit 41.3 % (36.0-46.0); Hemoglobin 13.5 g/dL (12.2-16.2); Lymphocytes # (auto) 2.4 uL; Lymphocytes % (auto) 24.1 % (10.0-50.0); Mean Corpuscular Hemoglobin 27.5 pg (28.0-32.0); Mean Corpuscular Hgb Conc. 32.8 g/dL (32.0-36.0); Mean Corpuscular Volume 84.1 fL (80.0-100.0); Monocytes # (auto) 0.7 uL; Monocytes % (auto) 6.6 % (0.0-12.0); Neutrophils # (auto) 6.6 uL; Neutrophils % (auto) 65.5 % (37.0-80.0); Nucleated Red Blood Cells % 0.1 %; Platelet Count (auto) 316 10^3/uL (140-450); Red Blood Cells 4.91 10^6/uL (4.0-5.20); Red Cell Distribution Width 14.1 % (11.8-14.3); White Blood Cell 10.1 10^3/uL (4.4-10.8)
[2017-11-05 13:44] LABS: INR 0.93 (0.9-1.15); Partial Thromboplastin Time 31.6 sec (23.78-33.04)
[2017-11-05 13:46] LABS: Albumin 3.7 g/dL (3.4-5.0); BUN/Creatinine Ratio 35.9; Bilirubin, Total 0.1 mg/dL (0.2-1.0); Calcium 9.1 mg/dL (8.5-10.1); Potassium 4.6 mmol/L (3.5-5.1); Total Protein 8.4 g/dL (6.4-8.2)
[2017-11-05] MEDS: PIPERACILLIN-TAZOB 3.375GM 100 ML IV SCH ×2 (14:00→21:03)
[2017-11-05 15:21] LABS: Urine Bacteria NONE SEEN /hpf (None Seen); Urine Blood Negative /uL (Negative); Urine Specific Gravity 1.007 (1.001-1.035); Urine WBC 1 /hpf (0 - 5)
[2017-11-05 17:00] VITALS: BP 160/73
[2017-11-05] MEDS: InsuLIN REG 1unit/0.01ml Soln (100units/ml) SC SCH ×2 (17:00→21:04)
[2017-11-05] MEDS: ACCU-CHEK COMFORT CURVE STRIP VI SCH ×2 (17:25→21:04)
[2017-11-05] MEDS: LINEZOLID 600MG/300ML 300 ML IV SCH (17:25)
[2017-11-05] MEDS: ATORVASTATIN 20 MG TAB PO SCH (21:03)
[2017-11-05 22:00] VITALS: BP 127/50
[2017-11-06 05:00] VITALS: BP 144/72
[2017-11-06] MEDS: PIPERACILLIN-TAZOB 3.375GM 100 ML IV SCH ×3 (06:09→19:10)
[2017-11-06] MEDS: ACCU-CHEK COMFORT CURVE STRIP VI SCH ×4 (06:26→22:30)
[2017-11-06] MEDS: InsuLIN REG 1unit/0.01ml Soln (100units/ml) SC SCH ×4 (06:26→22:30)
[2017-11-06] MEDS: LINEZOLID 600MG/300ML 300 ML IV SCH ×2 (06:26→17:46)
[2017-11-06 08:00] VITALS: BP 166/81
[2017-11-06 09:00] VITALS: BP 166/81
[2017-11-06] MEDS: ASPirin 81 mg TAB PO SCH (09:50)
[2017-11-06] MEDS: LISINOPRIL 10 MG TAB PO SCH (09:52)
[2017-11-06] MEDS: ASCORBIC ACID 500 MG TAB PO SCH (09:52)
[2017-11-06] MEDS: ZINC SULFATE 220 MG CAP PO SCH (09:53)
[2017-11-06] MEDS: traMADol HCL 50 MG TAB PO PRN (10:57)
[2017-11-06 12:00] VITALS: BP 140/57
[2017-11-06 17:00] VITALS: BP 102/46
[2017-11-06 22:00] VITALS: BP 140/78
[2017-11-06] MEDS: ATORVASTATIN 20 MG TAB PO SCH (22:00)
[2017-11-07] MEDS: LINEZOLID 600MG/300ML 300 ML IV SCH (03:00)
[2017-11-07 05:00] VITALS: BP 158/83
[2017-11-07] MEDS: PIPERACILLIN-TAZOB 3.375GM 100 ML IV SCH ×4 (06:20→19:00)
[2017-11-07] MEDS: ACCU-CHEK COMFORT CURVE STRIP VI SCH ×4 (06:48→22:00)
[2017-11-07] MEDS: InsuLIN REG 1unit/0.01ml Soln (100units/ml) SC SCH ×4 (06:49→22:00)
[2017-11-07 08:00] VITALS: BP 100/61
[2017-11-07 09:00] VITALS: BP 108/88
[2017-11-07 09:42] LABS: Basophils # (auto) 0.1 uL; Basophils % (auto) 0.7 % (0.0-2.0); Eosinophils # (auto) 0.2 uL; Eosinophils % (auto) 2.9 % (0.0-7.0); Hematocrit 36.4 % (36.0-46.0); Hemoglobin 11.9 g/dL (12.2-16.2); Lymphocytes # (auto) 1.5 uL; Lymphocytes % (auto) 18.3 % (10.0-50.0); Mean Corpuscular Hemoglobin 27.2 pg (28.0-32.0); Mean Corpuscular Hgb Conc. 32.6 g/dL (32.0-36.0); Mean Corpuscular Volume 83.3 fL (80.0-100.0); Monocytes # (auto) 0.5 uL; Monocytes % (auto) 6.1 % (0.0-12.0); Platelet Count (auto) 275 10^3/uL (140-450); Red Blood Cells 4.37 10^6/uL (4.0-5.20); Red Cell Distribution Width 14.1 % (11.8-14.3); White Blood Cell 8.4 10^3/uL (4.4-10.8)
[2017-11-07 10:01] LABS: BUN/Creatinine Ratio 18.5; Calcium 8.5 mg/dL (8.5-10.1); Potassium 4.3 mmol/L (3.5-5.1)
[2017-11-07] MEDS: ASCORBIC ACID 500 MG TAB PO SCH (10:04)
[2017-11-07] MEDS: ASPirin 81 mg TAB PO SCH (10:04)
[2017-11-07] MEDS: ZINC SULFATE 220 MG CAP PO SCH (10:04)
[2017-11-07] MEDS: LISINOPRIL 10 MG TAB PO SCH (10:04)
[2017-11-07] MEDS ORDERED: CLOPIDOGREL 300 MG TAB PO ONE (10:15)
[2017-11-07 13:00] VITALS: BP 156/73
[2017-11-07 17:00] VITALS: BP 123/59
[2017-11-07] MEDS: ATORVASTATIN 20 MG TAB PO SCH (22:00)
[2017-11-07 22:01] VITALS: BP 156/71
[2017-11-08] MEDS: PIPERACILLIN-TAZOB 3.375GM 100 ML IV SCH ×5 (00:28→23:59)
[2017-11-08 05:28] VITALS: BP 108/55
[2017-11-08] MEDS: ACCU-CHEK COMFORT CURVE STRIP VI SCH ×4 (07:00→21:31)
[2017-11-08] MEDS: InsuLIN REG 1unit/0.01ml Soln (100units/ml) SC SCH ×4 (07:00→21:37)
[2017-11-08 07:49] LABS: Basophils # (auto) 0.1 uL; Basophils % (auto) 0.8 % (0.0-2.0); Eosinophils # (auto) 0.2 uL; Eosinophils % (auto) 3.4 % (0.0-7.0); Hematocrit 31.6 % (36.0-46.0); Hemoglobin 10.8 g/dL (12.2-16.2); Lymphocytes # (auto) 2.3 uL; Lymphocytes % (auto) 30.9 % (10.0-50.0); Mean Corpuscular Hgb Conc. 34.1 g/dL (32.0-36.0); Mean Corpuscular Volume 82.1 fL (80.0-100.0); Monocytes # (auto) 0.7 uL; Monocytes % (auto) 9.7 % (0.0-12.0); Neutrophils # (auto) 4.1 uL; Neutrophils % (auto) 55.2 % (37.0-80.0); Nucleated Red Blood Cells % 0.1 %; Platelet Count (auto) 258 10^3/uL (140-450); Red Blood Cells 3.85 10^6/uL (4.0-5.20); Red Cell Distribution Width 13.6 % (11.8-14.3); White Blood Cell 7.4 10^3/uL (4.4-10.8)
[2017-11-08 08:00] VITALS: BP 111/43
[2017-11-08 08:04] LABS: Calcium 8.3 mg/dL (8.5-10.1); Potassium 3.9 mmol/L (3.5-5.1)
[2017-11-08 09:22] VITALS: BP 111/43
[2017-11-08] MEDS: traMADol HCL 50 MG TAB PO PRN ×2 (09:27→20:54)
[2017-11-08] MEDS: ASPirin 81 mg TAB PO SCH (09:29)
[2017-11-08] MEDS: ASCORBIC ACID 500 MG TAB PO SCH (09:30)
[2017-11-08] MEDS: LISINOPRIL 10 MG TAB PO SCH (09:30)
[2017-11-08] MEDS: ZINC SULFATE 220 MG CAP PO SCH (09:30)
[2017-11-08] MEDS ORDERED: IODIXANOL 320MG/ML 100ML BTL IV ONE (10:59)
[2017-11-08] MEDS ORDERED: LIDOCAINE 2% (LOCAL ANESTH.) PF 5ml SDV ONE (10:59)
[2017-11-08 13:27] VITALS: BP 119/67
[2017-11-08] MEDS ORDERED: ANGIOMAX 250 MG VIAL IV ONE (14:07)
[2017-11-08] MEDS ORDERED: SODIUM CHL 0.9% 50 ML ONE (14:07)
[2017-11-08] MEDS ORDERED: fentaNYL CITRATE 100 MCG/2 ML VL ONE (14:07)
[2017-11-08] MEDS ORDERED: MIDAZOLAM HCL 1MG/1ML-2 ML VIAL ONE (14:07)
[2017-11-08] MEDS ORDERED: IOHEXOL 350 MG/ML 100ML IJ ONE (14:15)
[2017-11-08] MEDS: ATORVASTATIN 20 MG TAB PO SCH (21:31)
[2017-11-08 22:00] VITALS: BP 117/40
[2017-11-09 05:00] VITALS: BP 155/71
[2017-11-09] MEDS: traMADol HCL 50 MG TAB PO PRN ×2 (05:09→20:33)
[2017-11-09] MEDS: PIPERACILLIN-TAZOB 3.375GM 100 ML IV SCH ×3 (05:52→18:15)
[2017-11-09] MEDS: InsuLIN REG 1unit/0.01ml Soln (100units/ml) SC SCH ×4 (06:30→22:29)
[2017-11-09] MEDS: ACCU-CHEK COMFORT CURVE STRIP VI SCH ×4 (06:30→22:26)
[2017-11-09 08:38] VITALS: BP 144/64
[2017-11-09] MEDS: LISINOPRIL 10 MG TAB PO SCH (10:06)
[2017-11-09] MEDS: ASPirin 81 mg TAB PO SCH (10:06)
[2017-11-09] MEDS: ASCORBIC ACID 500 MG TAB PO SCH (10:06)
[2017-11-09] MEDS: ZINC SULFATE 220 MG CAP PO SCH (10:06)
[2017-11-09 12:27] VITALS: BP 160/92
[2017-11-09] MEDS: ENOXAPARIN SOD 40 MG/0.4 ML SYRINGE SC ONE ×2 (12:59→13:05)
[2017-11-09 17:24] VITALS: BP 163/75
[2017-11-09 22:00] VITALS: BP 163/81
[2017-11-09] MEDS: ATORVASTATIN 20 MG TAB PO SCH (22:00)
[2017-11-09] MEDS ORDERED: cloNIDine HCL 0.1 MG TAB PO PRN (22:45)
[2017-11-09] MEDS: ACETAMINOPHEN 325 MG TAB PO PRN (22:58)
[2017-11-10] MEDS: PIPERACILLIN-TAZOB 3.375GM 100 ML IV SCH ×4 (00:35→17:39)
[2017-11-10 05:15] VITALS: BP 97/46
[2017-11-10 06:51] VITALS: BP 130/57
[2017-11-10] MEDS: ACCU-CHEK COMFORT CURVE STRIP VI SCH ×4 (06:56→22:19)
[2017-11-10] MEDS: InsuLIN REG 1unit/0.01ml Soln (100units/ml) SC SCH ×4 (06:56→22:00)
[2017-11-10 09:00] VITALS: BP 130/57
[2017-11-10] MEDS: ZINC SULFATE 220 MG CAP PO SCH (10:00)
[2017-11-10] MEDS: ASPirin 81 mg TAB PO SCH (10:01)
[2017-11-10] MEDS: CLOPIDOGREL BISULFATE 75 MG TAB PO SCH (10:01)
[2017-11-10] MEDS: ASCORBIC ACID 500 MG TAB PO SCH (10:01)
[2017-11-10] MEDS: LISINOPRIL 10 MG TAB PO SCH ×2 (10:01→22:19)
[2017-11-10 12:37] VITALS: BP 124/56
[2017-11-10] MEDS ORDERED: ATROPINE SULF 0.5 MG/5ML SYR IV ONE (15:58)
[2017-11-10 17:00] VITALS: BP 164/74
[2017-11-10 21:59] VITALS: BP 140/68
[2017-11-10] MEDS: ATORVASTATIN 20 MG TAB PO SCH (22:00)
[2017-11-10] MEDS: ACETAMINOPHEN 325 MG TAB PO PRN (22:52)
[2017-11-11] VITALS (8 sets, daily range): BP systolic 138–177; BP diastolic 59–81
[2017-11-11] MEDS: PIPERACILLIN-TAZOB 3.375GM 100 ML IV SCH ×4 (03:54→17:39)
[2017-11-11] MEDS: ACCU-CHEK COMFORT CURVE STRIP VI SCH ×3 (06:29→17:00)
[2017-11-11] MEDS: InsuLIN REG 1unit/0.01ml Soln (100units/ml) SC SCH ×3 (06:29→17:00)
[2017-11-11] MEDS: CLOPIDOGREL BISULFATE 75 MG TAB PO SCH (09:15)
[2017-11-11] MEDS: traMADol HCL 50 MG TAB PO PRN ×2 (09:15→17:31)
[2017-11-11] MEDS: ASPirin 81 mg TAB PO SCH (09:15)
[2017-11-11] MEDS: LISINOPRIL 10 MG TAB PO SCH (09:16)
[2017-11-11] MEDS: ASCORBIC ACID 500 MG TAB PO SCH (09:16)
[2017-11-11] MEDS: ZINC SULFATE 220 MG CAP PO SCH (10:00)
[2017-11-11] MEDS ORDERED: Boost Glucose Control 8 Ounces PO SCH ×2 (12:00→18:00)
[2017-11-11] MEDS ORDERED: ASCO500T11 PO (18:07)
[2017-11-11] MEDS ORDERED: DOXY-216 PO (18:07)
[2017-11-11] MEDS ORDERED: LISI10TA6 PO (18:07)
[2017-11-11] MEDS ORDERED: CLOP75TA28 PO (18:07)
[2017-11-11] MEDS ORDERED: ATOR20TA50 PO (18:23)
== END 2017-11-11 20:00 | disposition hospice, home (50) | DRG 300 ==
LOC: WEST WING 10:59
PROVIDERS: ADMIT Internal Medicine; ATTEND Internal Medicine
PROC: B41G1ZZ Fluoroscopy of Left Lower Extremity Arteries using Low Osmolar Contrast (ICD-10-PCS; principal; 2017-11-08)
PROC: B41F1ZZ Fluoroscopy of Right Lower Extremity Arteries using Low Osmolar Contrast (ICD-10-PCS; 2017-11-08)
DX: I70.201 Unspecified atherosclerosis of native arteries of extremities, right leg (principal); L03.115 Cellulitis of right lower limb; E11.51 Type 2 diabetes mellitus with diabetic peripheral angiopathy without gangrene; I10 Essential (primary) hypertension; E11.621 Type 2 diabetes mellitus with foot ulcer; E78.5 Hyperlipidemia, unspecified; I25.10 Atherosclerotic heart disease of native coronary artery without angina pectoris; L97.519 Non-pressure chronic ulcer of other part of right foot with unspecified severity; Z82.3 Family history of stroke; Z82.49 Family history of ischemic heart disease and other diseases of the circulatory system; Z89.512 Acquired absence of left leg below knee; Z89.411 Acquired absence of right great toe; Z95.1 Presence of aortocoronary bypass graft
CPT/HCPCS: 36415; 71045; 73620; 73630; 75716; 78315; 80048; 80053; 81001; 82962; 83036; 85025; 85610; 85730; 86850; 86900; 86901; 87205; 93926; 94761; 96365; 96366; 99152; J0461; J1815; J2250; J2405; J2543; J3490; Q9967